=== PATIENT | male | born 1990 | race Caucasian/White ===

== ENCOUNTER 2025-03-29 18:04 | Emergency (ER) | payer MEDICAID ==
[~2025-03-29] VITALS: Ht 188 cm; Wt 124.7 kg
--- NOTE | 2025-03-29 19:16 | Physician Documentation ---
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 Presenting to urgent care because he reports some coolness to his left hand that began 3-4 days ago that waxes and wanes along with some peripheral pain. Denies any overuse syndromes. Denies any scanning speech or visual difficulties. No prior history of the same. No lower extremity weakness. Patient has normal gait. No nausea vomiting, headache or dizziness. Medication Reconciliation Allergies: Coded Allergies: No Known Allergies (Unverified , 03/29/25) Review of Systems All Other Systems at this time: Reviewed and Negative Constitutional: Denies: fever, chills Neuro: Reports: tingling; Denies: headache, seizures, weakness, numbness Physical Exam Physical Exam Vital Signs: RN Vital Signs have been reviewed: Yes, Temperature: 98.6, Source: Temporal, Heart Rate: 77, Respiratory Rate: 14, BP: 137/99, Pulse Oximetry: 99, Weight: 124.700 General Appearance: alert, WD/WN Head: normal inspection Face: normal inspection Pupils/EOM/Fundus: PERRLA Nose: normal inspection Back: normal inspection Extremities: normal range of motion, non-tender, normal inspection, no edema Extremities Radial ulnar and median nerve grossly intact. No cervical tenderness. C4-5 and six grossly intact. Negative Tinel's sign. Negative Phalen sign. Negative reproducible pain of the medial or lateral epicondylitis. No weakness. Neurologic: oriented x4, interface engineer II-XII nml as tested Motor / Sensory: no motor deficit, no sensory deficit Psychiatric: normal mood/affect Skin: normal color, warm/dry Progress Results/Orders Results/Orders Vital Signs 03/29/25 18:26 Temp 98.6 Pulse 77 Resp 14 B/P (MAP) 137/99 Pulse Ox 99 Medical Decision Making Differential Diagnosis Patient examination history is likely that consistent with a peripheral nerve dysfunction. Radial, median ulnar nerve grossly intact. No reproducible median nerve pain. No epicondylitis suspected or cubital tunnel entrapment. Biceps and triceps grossly intact. Do not suspect CVA. He was NIH score 0. Patient was to follow up with primary care for referral to Neurology for consideration and NCV or EMGs. No clinical suspicion for multiple sclerosis or other neuromuscular degenerative pathologies at this time. Departure Disposition: HOME / SELF CARE / HOMELESS Impression: Primary Impression: Peripheral nerve dysfunction Condition: Stable Discharge Instructions: Peripheral Neuropathy Additional Instructions: Please make follow up appointment with your primary care physician for consideration of referral to Neurology for NCV test and/or EMGs. Referrals: NO PRIMARY CARE PROVIDER (PCP) Education Educated: Patient Educated regarding: diagnosis, treatment Signature Scribe Signature: . Attestation: . EZEQUIEL TRUJILLO PAC March 29, 2025 19:16
[2025-03-29 19:59] VITALS: BP 131/78; PULSE 70; RESP 16; TEMP 98.6; O2SAT 92
== END 2025-03-29 20:01 | disposition home or self-care (01) ==
LOC: ER 18:06
DX: G64 Other disorders of peripheral nervous system (principal); M79.642 Pain in left hand
CPT/HCPCS: 99281